=== PATIENT | male | born 1950 | race Caucasian/White ===

== ENCOUNTER 2017-07-25 13:52 | Emergency (ER) | payer OTHER, BC ==
[~2017-07-25] VITALS: Ht 165.1 cm; Wt 94.7 kg
[~2017-07-25 13:52] MED LIST: AMLODIPINE BESYL5 MG PO; BUPROBAN150 MG PO; CIPRO500 MG PO; CITALOPRAM HBR40 MG PO; LISINOPRIL-HCT1 EAC3 PO; LO-DOSE ASPIRIN81 M1 PO; METOPROLOL SUCC50 MG PO; PRAVASTATIN SOD40 MG PO; ROXICODONE5 MG PO
[2017-07-25 14:58] LABS: BASOPHIL (%) 0.4 % (0-1); EOSINOPHIL (%) 0.1 % (0-5); HEMATOCRIT 50.6 % (38.0-50.0); HEMOGLOBIN 17.2 G/DL (12.5-16.6); IMMATURE GRANULOCYTE (%) 0.3 % (0.0-0.7); LYMPHOCYTE (%) 11.2 % (15-42); LYMPHOCYTE COUNT 0.8 K/uL (1.0-2.8); MCH 30.4 PG (29.0-34.0); MCV 89.6 FL (86-99); MONOCYTE (%) 3.7 % (3-12); MONOCYTE COUNT 0.3 K/uL (0-0.8); NEUTROPHIL (%) 84.3 % (45-76); NEUTROPHIL COUNT 5.7 K/uL (1.8-6.4); PLATELET COUNT 188 K/uL (156-360); RBC DIS.WIDTH-CV 12.9 % (11.8-14.6); RBC DIS.WIDTH-SD 42.1 % (39-53); RED BLOOD COUNT 5.65 M/uL (4.00-5.50); WHITE BLOOD COUNT 6.8 K/uL (4.1-10.2)
[2017-07-25 15:04] LABS: CHLORIDE 100 mEq/L (99-109); POTASSIUM 3.4 mEq/L (3.7-5.4); SODIUM 138 mEq/L (136-147)
[2017-07-25 15:05] LABS: GLUCOSE 204 mg/dL (70-99)
[2017-07-25 15:09] LABS: CREATININE 1.5 mg/dL (0.6-1.3); GFR ESTIMATE (CALCULATED) 50 mL/min/ (58.99-99999)
[2017-07-25 15:10] LABS: UREA NITROGEN (BUN) 29 mg/dL (9-23)
[2017-07-25 15:52] VITALS: BP 149/62
[2017-07-25] MEDS ORDERED: AMLODIPINE BESY10 MG PO (16:01)
[2017-07-25] MEDS ORDERED: LISINOPRIL-HCT1 EAC3 PO (16:01)
[2017-07-25] MEDS ORDERED: BUPROPION XL150 MG PO (16:01)
[2017-07-25] MEDS ORDERED: METOPROLOL SUC100 MG PO (16:02)
[2017-07-25] MEDS ORDERED: PROAIR HFA8.5 GM IH (16:02)
== END 2017-07-25 15:54 | disposition left against medical advice (07) ==
LOC: EME 13:52
PROVIDERS: Emergency Medicine
DX: J11.1 Influenza due to unidentified influenza virus with other respiratory manifestations (principal); J44.1 Chronic obstructive pulmonary disease with (acute) exacerbation; I10 Essential (primary) hypertension; F41.9 Anxiety disorder, unspecified; F17.200 Nicotine dependence, unspecified, uncomplicated; Z79.82 Long term (current) use of aspirin
CPT/HCPCS: 80048; 85025; 93005; 94640; 99281; 99284; J2930